=== PATIENT | male | born 1960 | race African-American/Black ===

== ENCOUNTER → 2020-03-27 | Emergency (ER) | payer OTHER ==
[~2020-03-27] VITALS: Ht 162.6 cm; Wt 89.8 kg
[~2020-03-27] MED LIST: IBUPROFEN600 M1 ORAL; LIDODERM700 M1 TOPIC; ROBAXIN-750750 MG PO
[2020-03-27 14:54] VITALS: BP 158/92
--- NOTE | 2020-03-27 15:13 | NUR ---
ED Nurse Note: Patient walked into ED from home c/o left sided hip and leg pain x 1 week. Patient denies any injury, states that it has been difficult to walk. Gait steady, but has slight limp. Patient AxO x 4, no s/s of acute distress. ERMD at bedside
--- NOTE | 2020-03-27 16:48 | Diagnostic Imaging Report ---
EXAM: XR Left Hip With Pelvis When Performed, 2 or 3 Views CLINICAL HISTORY: PAIN TECHNIQUE: Two or three views of the left hip with pelvis when performed. COMPARISON: None FINDINGS: Bones/joints: No displaced fracture or dislocation identified. Joint space is maintained. No bony lesion. Soft tissues: Skin folds over the proximal femurs. IMPRESSION: No displaced fracture or dislocation identified.
--- NOTE | 2020-03-27 19:38 | Emergency Room Report ---
History of Present Illness General Chief Complaint: Pain Source: Patient Present Illness HPI 59 yo M presents to ED c/o L hip pain. states hes had pain on and off x 1 week. states he received a massage which made his pain worse. Dull, 8 out of 10 radiating down the left leg. Denies leg swelling. Denies chest pain or shortness of breath. Denies any bowel or bladder continence. Denies any leg or motor weakness. No other aggravating relieving factors. Denies any other associated symptoms Allergies: Coded Allergies: No Known Allergies (Unverified , 03/27/20) COVID-19 Screening Contact w/high risk pt: No Experienced COVID-19 symptoms?: No COVID-19 Testing performed PUDDLER PILE DRIVING: No Patient History Past Medical History: HTN Past Surgical History: none Pertinent Family History: none Social History: Denies: smoking, alcohol use, drug use Immunizations: UTD Reviewed Nursing Documentation: PMH: Agreed; PSxH: Agreed Nursing Documentation-PMH Past Medical History: No History, Except For Hx Hypertension: Yes Review of Systems All Other Systems: negative except mentioned in HPI Physical Exam Vital Signs Date Time Temp Pulse Resp B/P (MAP) Pulse Ox O2 Delivery O2 Flow Rate FiO2 03/27/20 14:54 98.2 80 20 158/92 (114) 96 Room Air Sp02 EP Interpretation: reviewed, normal General Appearance: no apparent distress, alert, GCS 15, non-toxic Head: normocephalic, atraumatic Eyes: bilateral eye normal inspection, bilateral eye PERRL ENT: hearing grossly normal, normal pharynx, no angioedema, normal voice Neck: full range of motion, supple/symm/no masses Respiratory: chest non-tender, lungs clear, normal breath sounds, speaking full sentences Cardiovascular #1: regular rate, rhythm, no edema Cardiovascular #2: 2+ carotid (R), 2+ carotid (L), 2+ radial (R), 2+ radial (L) , 2+ dorsalis pedis (R), 2+ dorsalis pedis (L) Gastrointestinal: normal bowel sounds, non tender, soft, non-distended, no guarding, no rebound Rectal: deferred Genitourinary: normal inspection, no CVA tenderness Musculoskeletal: normal range of motion, gait/station normal, tender - paraspinal L back pain and L buttock pain Neurologic: alert, motor strength/tone normal, oriented x3, sensory intact, responsive, speech normal Psychiatric: judgement/insight normal, memory normal, mood/affect normal, no suicidal/homicidal ideation Reflexes: 3+ bicep (R), 3+ bicep (L), 3+ tricep (R), 3+ tricep (L), 3+ knee (R) , 3+ knee (L) Lymphatic: no adenopathy Medical Decision Making Diagnostic Impression: Primary Impression: Muscle strain ER Course Hospital Course 59 yo M presents to ED c/o L hip and back pain Differential diagnoses include: Fracture, dislocation, sprain, contusion Clinical course Patient placed on stretcher. After initial history and physical, I ordered pain medications and Xrays of L hip Xrays read shows no acute fracture/dislocation. On reassessment pain improved. I discussed findings with patient. I believe pain is muscular. Will prescribe medications. Safe for discharge close outpatient follow-up. I will provide referrals Diagnosis - muscle strain Stable and discharged to home with prescription for Motrin, robaxin, lidoderm. weight bear as tolerated. Followup with PMD. Return to ED if symptoms recur or worsen Other X-Ray Diagnostic Results Other X-Ray Diagnostic Results : X-Ray ordered: L hip # of Views/Limited Vs Complete: 3 View Indication: Pain EP Interpretation: Yes Interpretation: no dislocation, no soft tissue swelling, no fractures Impression: No acute disease Electronically Signed by: Electronically signed by Marc Lyman MD Last Vital Signs Date Time Temp Pulse Resp B/P (MAP) Pulse Ox O2 Delivery O2 Flow Rate FiO2 03/27/20 14:54 98.2 80 20 158/92 (114) 96 Room Air Status: improved Disposition: HOME, SELF-CARE Condition: Stable Scripts Lidocaine Patch* (Lidoderm Patch*) 1 Each Adh..patch 1 PATCH TOPIC DAILY, #7 PATCH 0 Refills Patch(es) may remain in place for up to 12 hours in any 24-hour period. Prov: Marc Lyman MD 03/27/20 Methocarbamol* (ROBAXIN-750*) 750 Mg Tablet 750 MG PO TID, #21 TAB 0 Refills Prov: Marc Lyman MD 03/27/20 Ibuprofen* (MOTRIN*) 600 Mg Tablet 600 MG ORAL Q6H PRN for For Pain, #30 TAB 0 Refills Prov: Marc Lyman MD 03/27/20 [facility] Open 24 hour /7 days a week by Appointment Only [address] [facility] [id number] Patient Instructions: Muscle Strain Marc Lyman MD Mar 27, 2020 19:38
== END | disposition home or self-care (01) ==
LOC: EMR 15:28
DX: M25.552 Pain in left hip (principal); M54.9 Dorsalgia, unspecified; T14.8XXA Other injury of unspecified body region, initial encounter; X58.XXXA Exposure to other specified factors, initial encounter; I10 Essential (primary) hypertension
CPT/HCPCS: 73500; Z7502; 99283